=== PATIENT | female | born 2000 | race Caucasian/White ===

== ENCOUNTER 2020-05-19 20:42 | Emergency (ER) | payer OTHER ==
[~2020-05-19] VITALS: Ht 160 cm; Wt 54.4 kg
[2020-05-19 20:50] VITALS: BP_SYST 131
[2020-05-19 20:55] VITALS: BP_SYST 131
== END 2020-05-19 20:55 | disposition home or self-care (01) ==
LOC: SED 20:42
DX: F10.129 Alcohol abuse with intoxication, unspecified (principal); Y90.9 Presence of alcohol in blood, level not specified
CPT/HCPCS: 99283